=== PATIENT | male | born 1975 | race Caucasian/White ===

== ENCOUNTER 2017-05-04 12:16 | Outpatient (CLI) | payer OTHER ==
--- NOTE | 2017-05-04 12:49 | RAD ---
CHEST TWO VIEWS: History: Pneumonia. Comparison: None. FINDINGS: There are patchy right midlung and left lower airspace opacities. No pneumothorax. Mild blunting of t he left lateral costophrenic sulcus. IMPRESSION: 1. Middle lobe and left lower lobe pneumonia. Follow up recommended. POS: [facility]
== END 2017-05-04 12:17 | disposition home or self-care (01) ==
LOC: MADRAD 12:16
PROVIDERS: ATTEND Nurse Practitioner Family
DX: J18.9 Pneumonia, unspecified organism (principal); J45.909 Unspecified asthma, uncomplicated
CPT/HCPCS: 71046

== ENCOUNTER 2018-02-17 19:06 | Emergency (ER) | payer OTHER ==
--- NOTE | 2018-02-17 20:18 | RAD ---
THREE VIEWS RIGHT ANKLE: 02/17/18 HISTORY: Right ankle pain. Ankle mortise is congruent. There is no fracture or dislocation. Subcutaneous soft tissue swelling is seen at the lateral aspect of the right ankle. IMPRESSION: 1. No acute osseous abnormality. 2. Subcutaneous soft tissue swelling lateral right ankle. POS: [facility]
== END 2018-02-17 20:01 | disposition home or self-care (01) ==
LOC: MADERS 19:06
DX: S93.411A Sprain of calcaneofibular ligament of right ankle, initial encounter (principal); X50.1XXA Overexertion from prolonged static or awkward postures, initial encounter

== ENCOUNTER 2021-09-10 07:08 | Emergency (ER) | payer OTHER ==
[2021-09-10 08:05] LABS: #Basophils 0.1 thou/uL (0.0-0.2); #Eosinphils 0.2 thou/uL (0.0-0.7); #Lymphocytes 1.4 thou/uL (1.20-3.40); #Monocytes 0.5 thou/uL (0.11-0.59); #Neutrophils 2.7 thou/uL (1.40-6.50); %Basophils 1.1 % (0.0-1.0); %Eosinophils 4.2 % (0.0-10.0); %Lymphocytes 28.6 % (21.0-51.0); %Monocytes 10.7 % (0.0-10.0); %Neutrophils 55.3 % (42.0-75.0); Hemoglobin 15.9 g/dL (14.0-18.0); Mean Corpuscular Hemoglobin 27.6 pg (27.0-31.0); Mean Corpuscular Volume 83.6 fL (78.0-98.0); Mean Platelet Volume 9.1 fL (7.4-10.4); Platelet Count 254 thou/uL (130-400); RBC Distribution Width 11.8 % (11.5-14.5); Red Blood Cell (RBC) Count 5.78 mill/uL (4.70-6.10); White Blood Cell (WBC) Count 4.8 thou/uL (4.8-10.8)
[2021-09-10 08:20] LABS: ALT (SGPT) 21 U/L (8-55); AST (SGOT) 22 U/L (5-34); Albumin 4.3 g/dL (3.5-5.0); Alkaline Phosphatase 72 U/L (40-110); Anion Gap 17 mmol/L (10-20); BUN (Urea Nitrogen) 16 mg/dL (8.9-20.6); Bilirubin, Total 0.6 mg/dL (0.2-1.2); Calc. Creatinine Clearance 0 mL/min (70-130); Calcium 9.4 mg/dL (7.8-10.44); Carbon Dioxide 23 mmol/L (22-29); Chloride 105 mmol/L (98-107); Glucose 126 mg/dL (70-105); Lipase 24 U/L (8-78); Protein, Total 7.3 g/dL (6.0-8.3); Sodium 141 mmol/L (136-145)
[2021-09-10] MEDS ORDERED: Boostrix 0.5 ML (Tdap) VIAL ONE (09:06)
[2021-09-10] MEDS ORDERED: Ketorolac Tromethamine 30 MG/ML VIAL ONE (09:06)
[2021-09-10] MEDS ORDERED: Iopamidol 370 76% 100 ML VIAL ONE (10:38)
== END 2021-09-10 09:31 | disposition home or self-care (01) ==
LOC: MADERS 07:08
DX: S20.212A Contusion of left front wall of thorax, initial encounter (principal); R91.1 Solitary pulmonary nodule; W11.XXXA Fall on and from ladder, initial encounter; K21.9 Gastro-esophageal reflux disease without esophagitis
CPT/HCPCS: 71260; 74177; 80053; 83690; 85025; 90471; 90715; 94760; 96374; J1885; Q9967